=== PATIENT | female | born 1930 | race Caucasian/White ===

== ENCOUNTER 2016-09-15 15:12 | Emergency (ER) | payer MEDICARE, OTHER ==
--- NOTE | ~2016-09-15 | ER ---
PATIENT'S NAME: WALLACE LUO [facility] AGE: 86 Y [address] ROOM: [place] [address] LOCATION: [facility] ADMIT DATE: 09/15/2016 ER/Outpatient Report DISCHARGE DATE: 09/15/2016 FAMILY PHYSICIAN: Sandrita Morley MD ATTENDING PHYSICIAN: Liz Carpenter TIME OF ARRIVAL: 1512 hours. TIME SEEN: 1524 hours. HISTORY OF PRESENT ILLNESS: The patient is an 86-year-old female who was sent over from Dr. Morley's clinic. The patient has a lot of balance issues that have been ongoing for several years, but this morning at 10 a.m. suddenly felt more unsteady and loss of balance. She denies feeling any spinning sensation or vertigo, but feels like her brain is spinning inside her skull. She presented this way May of 2015 with a similar complaint and had an MRI that reportedly showed a meningioma at that time. She has not had any falls today, she has been very cautious, she went to Dr. Morley's office, she had 1 episode of double vision today as the trains were going by. She denies any chest pain. No palpitations. No shortness of breath. No other problems or concerns. ALLERGIES: TO AMOXICILLIN. CURRENT MEDICATIONS: 1. Fish oil 1000 mg daily. 2. Vitamin B12 1000 mcg daily. 3. Vitamin D3. 4. Centrum. 5. Metamucil. 6. Advil. 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 SOCIAL HISTORY: The patient lives alone, but has lots of family support. Tobacco use, denies. Alcohol use, denies. Drug use, denies. REVIEW OF SYSTEMS: All systems reviewed and negative other than what is noted in the HPI. PATIENT'S NAME: WALLACE LUO [facility] AGE: 86 Y [address] ROOM: [place] [address] LOCATION: [facility] ADMIT DATE: 09/15/2016 ER/Outpatient Report DISCHARGE DATE: 09/15/2016 FAMILY PHYSICIAN: Sandrita Morley MD ATTENDING PHYSICIAN: Liz Carpenter PHYSICAL EXAMINATION: VITAL SIGNS: Height 5 feet, 4 inches, weight 77.7 kg, blood pressure 176/78, pulse 84, respirations 20, temperature 98.3, and sats 94%. GENERAL: An 86-year-old female in no acute distress. HEENT: Head: Normocephalic, atraumatic. Ears: TMs translucent both ears. Nose: Mucosa pink, no lesions. Mouth: No lesions. Pharynx benign. Eyes: Pupils equal and reactive to light and accommodation. Extraocular movements intact. No double vision. Visual acuity grossly normal. No nystagmus. NECK: Supple. No lymphadenopathy. No bruits. LUNGS: Clear to auscultation. HEART: Regular rate and rhythm. No murmur, rub, or gallop. ABDOMEN: Soft, nondistended, nontender. SKIN: [address], warm, and dry. No lesions or rashes noted. NEURO: The patient is alert and oriented x4. Cranial nerves 2 through 12 grossly intact. Motor strength 5/5 throughout. Sensation is intact to light touch. No dysmetria. LABORATORY DATA: Head CT no acute findings per Radiology. Hemoglobin 13.6, hematocrit 42.9, platelets 193, white count 7.0. INR 0.92. Sodium 144, potassium 4.4, chloride 108, CO2 27, BUN 24, creatinine 1.0, blood sugar 111. Troponin I less than 0.040, free T4 0.9, TSH 3.120, pro-BNP 146. Hemoglobin A1c 6.7. EKG sinus rhythm at 80 beats per minute. No acute ST-elevation or depression. No previous EKG available for comparison. Incomplete right bundle-branch block. IMPRESSION AND PLAN: Unsteadiness with negative head CT today and the patient actually at this time is feeling better. She with the labs and everything being normal is agreeable to discharge, Dr. Morley was also notified. She will continue her current medications, slow cautious movements, use walker for assistance, her blood pressure is up a little bit here, and she will follow up with Dr. Morley in 1 week to have that rechecked. The patient, her daughter, and Dr. Morley are all in agreement. LIZ CARPENTER MD CAR/modl /[id number] d: 09/15/16 2343 t: 09/17/16 194, OUTPATIENT REPORT
[2016-09-15 16:00] LABS: BASOPHIL % 0.3 %; EOSINOPHIL # 0.1 K/uL (0.0-0.5); EOSINOPHIL % 0.7 %; HEMATOCRIT 42.9 % (30.0-46.0); HEMOGLOBIN 13.6 g/dL (10.0-15.0); IMMATURE GRANULOCYTE % 0.1 %; LYMPHOCYTE % 28.8 %; MCH 28.8 pg (27.0-34.0); MCHC 31.7 gm/dL (32.0-36.5); MCV 90.7 fl (83.0-98.0); MONOCYTE # 0.4 K/uL (0.0-1.0); MONOCYTE % 6.3 %; MPV 9.6 fl (9.4-12.4); NEUTROPHIL # (ANC) 4.4 K/uL (1.8-7.8); NEUTROPHIL % 63.8 %; NRBC % 0 /100WBC (0-0.00); PLATELET COUNT 193 K/uL (150-450); RBC 4.73 M/uL (3.00-5.00); RDW-CV 12.6 % (11.9-14.6)
[2016-09-15 16:18] LABS: INR - (THERAPEUTIC) 0.92 (0.92-1.07); PROTIME 9.7 SECONDS (9.8-11.4); PTT 25 SECONDS (25-32)
[2016-09-15 16:24] LABS: ALBUMIN 3.6 gm/dL (3.5-5.0); ALK PHOS 86 IU/L (33-138); ALT 26 IU/L (12-78); ANION GAP 13.4 (10.0-19.0); AST 21 IU/L (10-40); BLOOD UREA NITROGEN 24 mg/dL (6-24); CALCIUM 8.3 mg/dL (8.5-10.5); CHLORIDE 108 mMol/L (96-110); CO2 27 mMol/L (22-32); ESTIMATED GFR (MDRD EQUATION) 53; POTASSIUM 4.4 mMol/L (3.7-5.1); SODIUM 144 mMol/L (135-145); TOTAL BILIRUBIN 0.3 mg/dL (0.0-1.5); TOTAL PROTEIN 7.1 g/dL (6.0-8.4)
== END 2016-09-15 16:50 | disposition disaster alternative care site (69) ==
LOC: GMED 15:12
PROVIDERS: Family Medicine
DX: R26.89 Other abnormalities of gait and mobility (principal); Z88.1 Allergy status to other antibiotic agents; Z85.841 Personal history of malignant neoplasm of brain; Z79.899 Other long term (current) drug therapy

== ENCOUNTER → 2016-10-20 | Outpatient (CLI) | payer MEDICARE, OTHER | END | disposition disaster alternative care site (69) | LOC: GRAD 15:12 | DX: E04.2 Nontoxic multinodular goiter (principal); R93.8 Abnormal findings on diagnostic imaging of other specified body structures ==